=== PATIENT | male | born 1955 | race Caucasian/White ===

== ENCOUNTER 2017-05-01 09:52 | Emergency (ER) | payer BC, OTHER ==
[~2017-05-01] VITALS: Ht 177.8 cm; Wt 84.0 kg
[~2017-05-01 09:52] MED LIST: ASPI-435 PO; CLIN300C10 PO; CPR500 PO; GLC500 PO; LISI-461 PO; MULT-506 PO; PRLSR20 PO; PROB1CAP41 PO
[2017-05-01 10:10] VITALS: TEMP 36.8; Ht 177.8 cm; Wt 84.0 kg
[2017-05-01] MEDS ORDERED: LSN20 PO (10:45)
[2017-05-01] MEDS ORDERED: ATOR-22 PO (10:45)
--- NOTE | 2017-05-01 11:23 | DIAGNOSTIC IMAGING REPORT ---
L HIP UNILATERAL 2 VIEWS CLINICAL HISTORY: L hip pain COMPARISON: None. DISCUSSION: No acute fractures are visualized. A sclerotic density within the femoral neck likely represents a bone island. There is a small soft tissue calcification adjacent to the greater trochanter. This likely represents a tendon is/peritendinous calcification IMPRESSION: 1. No acute fractures 2. Possible calcific tendinitis Electronically signed by: Wily Connelly M.D. 05/01/2017 11:21 AM Dictated Date/Time: 05/01/2017 11:20 AM
[2017-05-01 11:46] VITALS: BP 143/88; PULSE 78; O2SAT 98
--- NOTE | 2017-05-02 06:09 | EMERGENCY ROOM VISIT NOTE ---
ED Visit Note First contact with patient: 10:46 Chief Complaint: Left hip pain. History of Present Illness: Mr. Granger is a 62-year-old white male who ambulates into the ED complaining of left hip pain. Patient reports his pain started 2 days ago. Since that time his pain has been constant. He reports he woke up with the pain in the morning. He denies any trauma to the hip the day before and has had no previous significant injuries or surgeries. Currently he describes his pain as a deep achy sensation and places his discomfort over the left hips rate her trochanter. He rates his discomfort 6/ 10. Intermittently his pain does radiate down to the knee primarily when he is weightbearing and ambulating. He has not identified any alleviating factors related to the pain. He has taken Tylenol without relief of his discomfort. He denies any associated symptoms including fevers, chills, sweats, skin eruptions, skin color changes, back pain, leg weakness/numbness/tingling, genital paresthesias, bowel and bladder dysfunction. Review of Systems: As noted above in history of present illness. 8 body systems were reviewed and found to be negative as noted above. Past Medical History: Diabetes, hypertension, unspecified skin disorder. Current Medications: Metformin, aspirin, multivitamins, Lipitor and lisinopril. Allergies to Medications: Patient denies. Social History: Patient is currently employed; he feels safe in his home environment; he denies tobacco use and admits to social alcohol use. Physical Examination: Vital Signs: Date Time Temp Pulse Resp B/P (MAP) Pulse Ox O2 Delivery O2 Flow Rate FiO2 05/01/17 11:46 78 16 143/88 98 05/01/17 10:10 36.8 81 16 158/94 96 Room Air GENERAL: 62-year-old male in mild to moderate distress due to pain, nontoxic- appearing, afebrile and hemodynamically stable. NEUROLOGICAL: Awake, alert and oriented to person, place and time. Answering questions appropriately and following commands. Normal gait. Good hand eye coordination. No focal motor sensory deficits. SKIN: Warm, dry and pink. No soft tissue eruptions or trauma noted. BACK: No tenderness over thoracic or lumbar bony spine. No tenderness throughout the paraspinous muscles. Full range of motion of the lumbar back. Negative straight leg raise test. LOWER EXTREMITIES: No gross bony deformities. No shortening or malrotation. Left: Mild tenderness over the greater trochanter without local erythema or edema. No bony crepitus. Full range of motion of the hip, knee and ankle against resistance. 5/5 muscle strength in all movements of the hip and knee. Patellar and Achilles tendon reflexes +2. He was able to distinguish light sensations through all dermatomes of the leg and foot. Distal pulses are intact and capillary refill was brisk. No calf tenderness or cords. ED Course: Patient is assessed as noted above. Patient's medication list was reviewed. A she was offered pain medication and refused. Left Hip X-Rays: Were read by myself and the radiologist and shows no acute fractures or dislocations. Radiologist did know a small soft tissue calcification adjacent to the greater trochanter consistent with possible calcified tendinitis. Patient was offered ambulation assist in the form of crutches and/or walker and he refused. Additionally patient was offered a short prescription for prednisone and refused due to his diabetes. Patient was educated about today's findings and instructed on his treatment plan ; he verbalized understanding and agreement with this plan. Clinical Impression: Left hip pain. Calcified tendinitis. Disposition: Patient discharged home in stable condition accompanied by his ; prior to departure he was reassessed and subjectively reported he was feeling better and rated his discomfort 4/10. Plan: Patient was encouraged to alternate ibuprofen and acetaminophen every 3 hours as needed for persistent pain. Patient was encouraged use ice on the area 4-5 times a day for 20-30 minutes. Patient was encouraged to rest for the next few days and no excessive walking/ running. Patient was encouraged to follow-up with his primary care provider for recheck and possible joint injections or referral to orthopedics. Patient was encouraged return the ED for worsening/uncontrolled pain, fevers, joint swelling, leg weakness/numbness/tingling or any new/concerning symptoms.
== END 2017-05-01 11:49 | disposition home or self-care (01) ==
LOC: C.EDB 09:53 → C.EDD 11:49
DX: M25.552 Pain in left hip (principal); M65.262 Calcific tendinitis, left lower leg; I10 Essential (primary) hypertension; E11.9 Type 2 diabetes mellitus without complications; Z79.899 Other long term (current) drug therapy